=== PATIENT | female | born 2000 | race African-American/Black ===

== ENCOUNTER 2023-03-22 20:06 | Inpatient (IN) | payer OTHER ==
[2023-03-22] MEDS: DEXTROSE 5%-LACTATED RINGERS 1,000 ML IV SCH (22:30)
[2023-03-22] MEDS ORDERED: SODIUM CHLORIDE 500 ML IV STA (22:30)
[2023-03-22 23:28] LABS: BASO % 0.5 % (0-2.0); EOS % 1.4 % (0-4.5); HEMATOCRIT 31.8 % (32.4-45.2); HEMOGLOBIN 10.5 GM/dL (10.7-15.3); LYMPH % 15.7 % (8-40); MCH 24.3 pg (25.7-33.7); MCHC 33.1 g/dl (32.0-36.0); MEAN CELL VOLUME 73.5 fl (80-96); MEAN PLT VOLUME 8.9 fl (7.5-11.1); MONO % 9.6 % (3.8-10.2); NEUT % 72.8 % (42.8-82.8); PLATELET COUNT 273 10^3/uL (134-434); RBC 4.32 M/mm3 (3.60-5.2); RDW 16.2 % (11.6-15.6); WHITE BLOOD COUNT 8.8 K/mm3 (4.0-10.0)
[2023-03-22 23:32] LABS: EPI CELLS >36 /uL (0-25.1); HYALINE CASTS 1 /uL (0-3.1); PH,URINE 6.5 (5.0-8.0); URINE APPEARANCE CLEAR; URINE BACTERIA 1362 /uL (0-1359); URINE BILIRUBIN NEGATIVE (NEGATIVE); URINE COLOR YELLOW; URINE GLUCOSE (UA) NEGATIVE (NEGATIVE); URINE KETONE NEGATIVE (NEGATIVE); URINE LEUK ESTERASE 1+ (NEGATIVE); URINE NITRITE NEGATIVE (NEGATIVE); URINE PROTEIN NEGATIVE (NEGATIVE); URINE RBC 6 /uL (0-23.9); URINE UROBILINOGEN 0.2 mg/dL (0.2-1.0); URINE WBC 58 /uL (0-25.8)
[2023-03-22 23:44] LABS: INR 1.09 (0.83-1.09); PROTHROMBIN TIME (PATIENT) 12.6 SEC (9.7-13.0)
[2023-03-23] MEDS: MISOPROSTOL 100 MCG TABLET PV SCH ×4 (00:20→12:02)
[2023-03-23 00:38] VITALS: BMI 32.8
[2023-03-23 00:46] LABS: POTASSIUM 3.3 mmol/L (3.5-5.1)
[2023-03-23 00:47] LABS: CALCIUM 8.8 mg/dL (8.5-10.1)
[2023-03-23 00:48] LABS: BLOOD UREA NITROGEN 7.4 mg/dL (7-18)
[2023-03-23 00:50] LABS: ALBUMIN 2.8 g/dl (3.4-5.0)
[2023-03-23 00:54] LABS: BILIRUBIN,TOTAL 0.2 mg/dL (0.2-1); CREATININE 0.6 mg/dL (0.55-1.3)
[2023-03-23 00:55] LABS: TOT PROT 6.2 g/dl (6.4-8.2)
[2023-03-23] MEDS ORDERED: morphine SULFATE 4 MG/ML VIAL IVPB ONE (04:59)
[2023-03-23] MEDS ORDERED: morphine CARPU-JECT 8 MG/1 ML DISP.SYRIN IVPB ONE (04:59)
[2023-03-23] MEDS ORDERED: morphine SULFATE 4 MG/ML VIAL ONE ×2 (05:03→05:06)
[2023-03-23] MEDS ORDERED: SODIUM CHLORIDE 500 ML IV STA (06:52)
[2023-03-23] MEDS ORDERED: OXYTOCIN 20 UNITS in 0.9% NS 20 UNIT/1,000 ML INFUS.BAG IV ONE (06:55)
[2023-03-23] MEDS ORDERED: WITCH HAZEL 50% (TUCKS) 40 PAD/JAR PAD TP PRN (08:33)
[2023-03-23] MEDS ORDERED: IBUPROFEN 600 MG TABLET (FP) PO PRN (08:33)
[2023-03-23] MEDS ORDERED: ACETAMINOPHEN 325 MG TABLET (FP) PO PRN (08:33)
[2023-03-23] MEDS ORDERED: BENZOCAINE 28 GM HEMORRHOIDAL OINTMENT TP PRN (08:33)
[2023-03-23] MEDS ORDERED: OXYTOCIN 20 UNITS in 0.9% NS 20 UNIT/1,000 ML INFUS.BAG IV SCH (08:45)
[2023-03-23 09:03] LABS: CORD BASE EXCESS -9.2 mmol/L (0-2); CORD HCO3 17.8 mmHg (20-29); CORD PCO2 42.7 mmHg (30-78); CORD pH 7.239 (7.14-7.44)
[2023-03-23] MEDS: PRENATAL VITAMINS W/ FOLIC ACID TABLET (FP) PO SCH (11:00)
[2023-03-23] MEDS: FERROUS SO4 325 MG TABLET (FP) PO SCH ×2 (11:43→17:30)
[2023-03-24 07:59] LABS: BASO % 0.6 % (0-2.0); EOS % 1.4 % (0-4.5); HEMATOCRIT 32.7 % (32.4-45.2); HEMOGLOBIN 10.4 GM/dL (10.7-15.3); LYMPH % 12.5 % (8-40); MCH 23.9 pg (25.7-33.7); MCHC 31.8 g/dl (32.0-36.0); MEAN CELL VOLUME 75.1 fl (80-96); MEAN PLT VOLUME 9.5 fl (7.5-11.1); MONO % 10.4 % (3.8-10.2); NEUT % 75.1 % (42.8-82.8); PLATELET COUNT 264 10^3/uL (134-434); RBC 4.35 M/mm3 (3.60-5.2); RDW 16.1 % (11.6-15.6); WHITE BLOOD COUNT 11.4 K/mm3 (4.0-10.0)
[2023-03-24] MEDS: FERROUS SO4 325 MG TABLET (FP) PO SCH ×3 (08:43→18:54)
[2023-03-24] MEDS: PRENATAL VITAMINS W/ FOLIC ACID TABLET (FP) PO SCH (09:05)
[2023-03-24] MEDS: MISOPROSTOL 100 MCG TABLET PV SCH ×3 (20:51→20:53)
[2023-03-24] MEDS: DEXTROSE 5%-LACTATED RINGERS 1,000 ML IV SCH (21:42)
[2023-03-24] MEDS ORDERED: SENNOSIDES/DOCUSATE COMBO (SENNA PLUS) TABLET (UD) PO PRN (22:00)
[2023-03-24 23:13] VITALS: RESP 18
[2023-03-25] MEDS: FERROUS SO4 325 MG TABLET (FP) PO SCH ×2 (08:55→13:27)
[2023-03-25] MEDS: PRENATAL VITAMINS W/ FOLIC ACID TABLET (FP) PO SCH (09:00)
[2023-03-25 09:21] VITALS: BP 111/72; PULSE 65; TEMP 98.4
== END 2023-03-25 14:20 | disposition home or self-care (01) | DRG 560 ==
LOC: JLDR 20:06 → J3W 03-23 10:50
PROVIDERS: ADMIT Obstetrics & Gynecology Maternal & Fetal Medicine; ATTEND Obstetrics & Gynecology Maternal & Fetal Medicine
PROC: 10E0XZZ Delivery of Products of Conception, External Approach (ICD-10-PCS; principal; 2023-03-23)
PROC: 0KQM0ZZ Repair Perineum Muscle, Open Approach (ICD-10-PCS; 2023-03-23)
DX: O41.03X0 Oligohydramnios, third trimester, not applicable or unspecified (principal); O13.4 Gestational [pregnancy-induced] hypertension without significant proteinuria, complicating childbirth; O70.1 Second degree perineal laceration during delivery; Z3A.39 39 weeks gestation of pregnancy; Z37.0 Single live birth
CPT/HCPCS: 36415; 36600; 80053; 81003; 82803; 85025; 85610; 85730; 86780; 86850; 86900; 86901; 88307-TC